=== PATIENT | male | born 1980 | race Two or more races ===

== ENCOUNTER 2018-12-21 09:29 | Outpatient (CLI) | payer OTHER | END 2018-12-21 09:40 | disposition home or self-care (01) | LOC: SONOGRAMA 09:29 | DX: D21.21 Benign neoplasm of connective and other soft tissue of right lower limb, including hip (principal) ==

== ENCOUNTER 2019-01-03 06:57 | Day surgery (SDC) | payer OTHER | END 2019-01-03 15:20 | disposition home or self-care (01) | LOC: CIR.AMB 06:57 | DX: D17.23 Benign lipomatous neoplasm of skin and subcutaneous tissue of right leg (principal) ==